=== PATIENT | female | born 1960 | race Caucasian/White ===

== ENCOUNTER 2017-11-17 09:43 | Day surgery (SDC) | payer OTHER ==
[2017-11-15 10:56] LABS: HEMOGLOBIN 14.1 g/dL (12.0-15.5); MEAN CORPUSCULAR HEMOGLOBIN 31.1 pg (27.0-33.4); MEAN CORPUSCULAR HGB CONC 34.3 g/dL (32.0-36.0); MEAN CORPUSCULAR VOLUME 91 fl (80-97); PLATELET COUNT 282 10^3/uL (150-450); RED BLOOD COUNT 4.52 10^6/uL (3.72-5.28); RED CELL DISTRIBUTION WIDTH 14.3 % (11.5-14.0); WHITE BLOOD COUNT 4.1 10^3/uL (4.0-10.5)
[2017-11-15 11:21] LABS: ANION GAP 11 (5-19); BLOOD UREA NITROGEN 19 mg/dL (7-20); CALCIUM 9.7 mg/dL (8.4-10.2); CARBON DIOXIDE 31 mmol/L (22-30); CHLORIDE 102 mmol/L (98-107); GLUCOSE 143 mg/dL (75-110); POTASSIUM 4.7 mmol/L (3.6-5.0); SODIUM 143.6 mmol/L (137-145)
[2017-11-15 11:25] LABS: APPEARANCE,URINE SLIGHTLY-CLOUDY; BILIRUBIN,URINE NEGATIVE (NEGATIVE); COLOR,URINE YELLOW; GLUCOSE, URINE NEGATIVE (NEGATIVE); KETONES,URINE NEGATIVE (NEGATIVE); LEUKOCYTE ESTERASE,URINE TRACE (NEGATIVE); NITRITE,URINE NEGATIVE (NEGATIVE); PROTEIN,URINE NEGATIVE (NEGATIVE); URINE SPECIFIC GRAVITY 1.019; UROBILINOGEN,URINE NEGATIVE mg/dL (<2.0)
--- NOTE | 2017-11-15 22:12 | EKG REPORT ---
SEVERITY:- NORMAL ECG - SINUS RHYTHM : Confirmed by: Collins Medina 15-Nov-2017 22:11:58
[~2017-11-17 09:43] MED LIST: CEFAZOLIN 1 GM/D5W RTU 1 GM/50 ML RTUPB IV PRN; LACTATED RINGERS 1000 ML IV PRN; LIDOCAINE 0.5% INJ-PF (5 MG/ML) 50 ML SDV SUBCUT PRN
[2017-11-17] MEDS ORDERED: MIDAZOLAM 2 MG/2 ML INJ ONE (11:58)
[2017-11-17] MEDS ORDERED: ACETAMINOPHEN 1,000 MG/100 ML RTUPB IV ONE (11:59)
[2017-11-17] MEDS ORDERED: HYDROMORPHONE HCL INJ/PF 2 MG/ML AMPULE ONE (11:59)
[2017-11-17] MEDS ORDERED: PROPOFOL INJ 200 MG/20 ML VIAL IV ONE (11:59)
[2017-11-17] MEDS ORDERED: OXYCODONE-ACETAMINOPHEN 5-325 MG TABLET PO PRN ×2 (12:28)
[2017-11-17] MEDS ORDERED: PROMETHAZINE HCL INJ 25 MG/1 ML VIAL IV PRN ×2 (12:28)
[2017-11-17] MEDS ORDERED: FENTANYL CITRATE INJ/PF 100 MCG/2 ML AMPUL IV PRN ×3 (12:28)
[2017-11-17] MEDS ORDERED: MEPERIDINE HCL/PF INJ 25 MG/1 ML DISP.SYRIN IV PRN (12:28)
[2017-11-17] MEDS ORDERED: DIPHENHYDRAMINE HCL 50 MG/ML VIAL IV PRN (12:28)
--- NOTE | 2017-11-17 13:00 | OPERATIVE REPORT E ---
Operative Report NAME: TUTU BANEGAS : 1960 AGE: 57Y DATE OF SURGERY: 11/17/2017 ROOM: PREOPERATIVE DIAGNOSIS: Postmenopausal bleeding. POSTOPERATIVE DIAGNOSIS: Postmenopausal bleeding, atrophy. OPERATION: D and C hysteroscopy SURGEON: Jayjay MEJÍA M.D. ESTIMATED BLOOD LOSS: Negligible. TISSUE REMOVED: Endometrium. PROCEDURE: Patient was placed in a dorsal lithotomy position, prepped and draped in sterile fashion. Speculum was placed. Cervix visualized and grasped with a single-toothed tenaculum and sounded to a depth of 10 cm. The os was dilated sufficiently. With the hysteroscope, hysteroscopy was performed with no polyps or submucous fibroids being noted. There appeared to be atrophic endometrium. Sharp curettage was performed with a minimal amount of tissue being recovered. Single-tooth tenaculum was removed and the procedure terminated. She was taken to recovery in good condition. DICTATING PHYSICIAN: Jayjay MEJÍA M.D. [id number] PHY#: [id number] ID: [id number] JOB#: [id number] ACCT: [id number] cc:Jayjay MEJÍA M.D. >
[2017-11-17] MEDS ORDERED: ONDANSETRON HCL 8 MG TABLET PO PRN (13:38)
[2017-11-17] MEDS ORDERED: IBUPROFEN 800 MG TABLET PO SCH (14:00)
[2017-11-17 14:40] VITALS: BP 123/71
== END 2017-11-17 14:05 | disposition home or self-care (01) ==
LOC: OROUT 09:43
PROVIDERS: ATTEND Obstetrics & Gynecology Gynecology
DX: N87.0 Mild cervical dysplasia (principal); N95.0 Postmenopausal bleeding; Z01.818 Encounter for other preprocedural examination; K21.9 Gastro-esophageal reflux disease without esophagitis; Z87.891 Personal history of nicotine dependence; Z88.2 Allergy status to sulfonamides; Z79.899 Other long term (current) drug therapy
CPT/HCPCS: 93010; 93005; 36415 ×2; 84132; 84703; 85027; 80048; 81001; 88342 ×2; 88341 ×2; 88305 ×2; 58558; J2250; J0690; J1170; J2704; J0131; 952

== ENCOUNTER 2018-08-10 05:47 | Emergency (ER) | payer OTHER ==
[2018-08-10 07:18] LABS: HEMATOCRIT 36.4 % (36.0-47.0); HEMOGLOBIN 12.7 g/dL (12.0-15.5); MEAN CORPUSCULAR HEMOGLOBIN 30.2 pg (27.0-33.4); MEAN CORPUSCULAR HGB CONC 34.9 g/dL (32.0-36.0); MEAN CORPUSCULAR VOLUME 86 fl (80-97); PLATELET COUNT 253 10^3/uL (150-450); RED BLOOD COUNT 4.21 10^6/uL (3.72-5.28); RED CELL DISTRIBUTION WIDTH 13.1 % (11.5-14.0); WHITE BLOOD COUNT 4.7 10^3/uL (4.0-10.5)
[2018-08-10 07:32] LABS: ALANINE AMINOTRANSFERASE 22 U/L (9-52); ALBUMIN 3.4 g/dL (3.5-5.0); ALKALINE PHOSPHATASE 67 U/L (38-126); ANION GAP 5 (5-19); ASPARTATE AMINO TRANSFERASE 20 U/L (14-36); BILIRUBIN,DIRECT 0.2 mg/dL (0.0-0.4); BILIRUBIN,TOTAL 0.7 mg/dL (0.2-1.3); BLOOD UREA NITROGEN 10 mg/dL (7-20); CALCIUM 9.2 mg/dL (8.4-10.2); CARBON DIOXIDE 26 mmol/L (22-30); CHLORIDE 108 mmol/L (98-107); GLUCOSE 83 mg/dL (75-110); POTASSIUM 3.8 mmol/L (3.6-5.0); SODIUM 138.8 mmol/L (137-145); TOTAL PROTEIN 5.8 g/dL (6.3-8.2)
[2018-08-10 07:45] LABS: ABSOLUTE MONOCYTES # (MANUAL) 0.7 10^3/uL (0.1-1.4); ABSOLUTE NEUTROPHILS# (MANUAL) 2.9 10^3/uL (1.7-8.2); BAND NEUTROPHILS % (MANUAL) 5 % (3-5); BASOPHILS % (MANUAL) 1 % (0-2); EOSINOPHILS % (MANUAL) 0 % (0-6); LYMPHOCYTES % (MANUAL) 21 % (13-45); MONOCYTES % (MANUAL) 15 % (3-13); SEGMENTED NEUTROPHILS % (MAN) 57 % (42-78); TOTAL CELLS COUNTED 100
[2018-08-10 07:47] LABS: OVALOCYTES SLIGHT; PLATELET COMMENT ADEQUATE; POIKILOCYTOSIS SLIGHT
--- NOTE | 2018-08-10 08:22 | ER Document Report ---
ED General - General Chief Complaint: Fever Stated Complaint: FEVER Time Seen by Provider: 08/10/18 08:21 Primary Care Provider: DEMETRIUS SAMAYOA PA [Primary Care Provider] - Follow up as needed Notes: 58-year-old female to the emergency department chief complaint of headache, neck pain fever at home. Patient states that she had a fever 103 at home. This is been going on for several days. She is concerned she may have meningitis. Denies any abdominal pain. Nothing seems to make it better or worse. No discomfort with urination. No significant exposures to sick contacts. No recent travel outside states. TRAVEL OUTSIDE OF THE [place] IN LAST 30 DAYS: No - HPI Onset: Yesterday Onset/Duration: Gradual, Constant Quality of pain: Achy Severity: Moderate Pain Level: 3 Associated symptoms: Fever, Headache - Related Data Allergies/Adverse Reactions: Sulfa (Sulfonamide Antibiotics) Allergy (Severe, Verified 08/10/18 05:49) Hives Past Medical History - General Information source: Patient - Social History Smoking Status: Never Smoker Chew tobacco use (# tins/day): No Frequency of alcohol use: None Drug Abuse: None Lives with: Alone Family History: Reviewed & Not Pertinent Patient has suicidal ideation: No Patient has homicidal ideation: No - Medical History Medical History: Negative Renal/ Medical History: Denies: Hx Peritoneal Dialysis Review of Systems - Review of Systems Notes: Constitutional: denies: Chills, Diaphoresis, +Fever EENT: denies: Eye discharge, Blurred vision, Tearing, Double vision, Nose congestion, Nose discharge, Throat swelling, Mouth pain. Complaining of stiffness in the neck and low back pain. Cardiovascular: denies: Palpitations, Heart racing, Orthopnea, Dyspnea, Chest pain Respiratory: denies: Cough, Hurts to breathe, Wheezing, Shortness of breath Gastrointestinal: denies: Abdominal pain, Diarrhea, Nausea, Vomiting, Black stools, bright red blood in stool Genitourinary: denies: Burning, Dysuria, Discharge, Frequency, Flank pain, Hematuria Musculoskeletal: denies: Joint pain, Joint swelling, Muscle pain, Muscle sti ffness, back pain Hematologic/Lymphatic: denies: Anemia, Easy bleeding, Easy bruising, Blood clots Neurological/Psychological: denies: Confusion, Dementia, Depression, Loss of consciousness and complaining of a headache Skin: No lesions, no masses, no skin breakdown, no abscesses Physical Exam - Vital signs Vitals: Temp Pulse Resp BP Pulse Ox 99.8 F 84 18 119/72 96 08/10/18 05:55 08/10/18 05:55 08/10/18 05:55 08/10/18 05:55 08/10/18 05:55 Interpretation: Normal - General General appearance: Appears well, Alert - HEENT Head: Normocephalic, Atraumatic Eyes: Normal Pupils: PERRL Pharynx: Normal Neck: Normal. No: Brudzinski, Lymphadenopathy, Meningismus - Respiratory Respiratory status: No respiratory distress Chest status: Nontender Breath sounds: Normal Chest palpation: Normal - Cardiovascular Rhythm: Regular Heart sounds: Normal auscultation Murmur: No - Abdominal Inspection: Normal Distension: No distension Bowel sounds: Normal Tenderness: Nontender Organomegaly: No organomegaly - Back Back: Normal, Nontender - Extremities General upper extremity: Normal inspection, Nontender, Normal color, Normal ROM, Normal temperature General lower extremity: Normal inspection, Nontender, Normal color, Normal ROM, Normal temperature, Normal weight bearing. No: Liza's sign - Neurological Neuro grossly intact: Yes Cognition: Normal Orientation: AAOx4 Neel Coma Scale Eye Opening: Spontaneous [place] Coma Scale Verbal: Oriented Neel Coma Scale Motor: Obeys Commands Neel Coma Scale Total: 15 Speech: Normal Motor strength normal: LUE, RUE, LLE, RLE Sensory: Normal - Psychological Associated symptoms: Normal affect, Normal mood - Skin Skin Temperature: Warm Skin Moisture: Dry Skin Color: Normal Course - Re-evaluation Re-evalutation: 08/10/18 11:46 Patient's labs are unremarkable. Afebrile here. CT shows some maxillary sinus cysts. Patient is still concerned that she could potentially have meningitis as she has been having fevers of 103 at home. States that she was tested by her primary care doctor for mono as well as strep and influenza and these were all negative. She would like to proceed with an LP to rule out meningitis. At this time I am going to see if radiology can perform this procedure. Coags are still pending at this time. 08/10/18 13:55 Radiology is available now to do the LP. LP results are pending after the procedure. Patient has been signed over to Dr. Reyes for review of the CSF analysis. If CSF does not show any significant findings for meningitis or subarachnoid hemorrhage then patient can be discharged with viral syndrome and headache. Laboratory 08/10/18 08/10/18 08/10/18 07:00 07:00 07:15 WBC 4.7 RBC 4.21 Hgb 12.7 Hct 36.4 MCV 86 MCH 30.2 MCHC 34.9 RDW 13.1 Plt Count 253 Total Counted 100 Seg Neutrophils % Not Reportable Seg Neuts % (Manual) 57 Band Neutrophils % 5 Lymphocytes % Not Reportable Lymphocytes % (Manual) 21 Atypical Lymphs % 1 Monocytes % Not Reportable Monocytes % (Manual) 15 H Eosinophils % Not Reportable Eosinophils % (Manual) 0 Basophils % Not Reportable Basophils % (Manual) 1 Absolute Neutrophils Not Reportable Abs Neuts (Manual) 2.9 Absolute Lymphocytes Not Reportable Abs Lymphs (Manual) 1.0 Absolute Monocytes Not Reportable Abs Monocytes (Manual) 0.7 Absolute Eosinophils Not Reportable Absolute Eos (Manual) 0.0 Absolute Basophils Not Reportable Abs Basophils (Manual) 0.0 Platelet Comment ADEQUATE Poikilocytosis SLIGHT Ovalocytes SLIGHT PT INR APTT Sodium 138.8 Potassium 3.8 Chloride 108 H Carbon Dioxide 26 Anion Gap 5 BUN 10 Creatinine 0.72 Est GFR ( Amer) > 60 Est GFR (Non-Af Amer) > 60 Glucose 83 Calcium 9.2 Total Bilirubin 0.7 Direct Bilirubin 0.2 Neonat Total Bilirubin Not Reportable Neonat Direct Bilirubin Not Reportable Neonat Indirect Bili Not Reportable AST 20 ALT 22 Alkaline Phosphatase 67 Total Protein 5.8 L Albumin 3.4 L Urine Color YELLOW Urine Appearance CLEAR Urine pH 5.0 Ur Specific [place] 1.016 Urine Protein NEGATIVE Urine Glucose (UA) NEGATIVE Urine Ketones NEGATIVE Urine Blood SMALL H Urine Nitrite NEGATIVE Urine Bilirubin NEGATIVE Urine Urobilinogen NEGATIVE Ur Leukocyte Esterase NEGATIVE Urine WBC (Auto) 1 Urine RBC (Auto) 0 Squamous Epi Cells Auto 1 Urine Mucus (Auto) RARE Urine Ascorbic Acid NEGATIVE 08/10/18 12:09 WBC RBC Hgb Hct MCV MCH MCHC RDW Plt Count Total Counted Seg Neutrophils % Seg Neuts % (Manual) Band Neutrophils % Lymphocytes % Lymphocytes % (Manual) Atypical Lymphs % Monocytes % Monocytes % (Manual) Eosinophils % Eosinophils % (Manual) Basophils % Basophils % (Manual) Absolute Neutrophils Abs Neuts (Manual) Absolute Lymphocytes Abs Lymphs (Manual) Absolute Monocytes Abs Monocytes (Manual) Absolute Eosinophils Absolute Eos (Manual) Absolute Basophils Abs Basophils (Manual) Platelet Comment Poikilocytosis Ovalocytes PT 13.4 INR 0.97 APTT 29.9 Sodium Potassium Chloride Carbon Dioxide Anion Gap BUN Creatinine Est GFR ( Amer) Est GFR (Non-Af Amer) Glucose Calcium Total Bilirubin Direct Bilirubin Neonat Total Bilirubin Neonat Direct Bilirubin Neonat Indirect Bili AST ALT Alkaline Phosphatase Total Protein Albumin Urine Color Urine Appearance Urine pH Ur Specific [place] Urine Protein Urine Glucose (UA) Urine Ketones Urine Blood Urine Nitrite Urine Bilirubin Urine Urobilinogen Ur Leukocyte Esterase Urine WBC (Auto) Urine RBC (Auto) Squamous Epi Cells Auto Urine Mucus (Auto) Urine Ascorbic Acid Head CT 08/10/18 08:55 IMPRESSION: No intracranial pathology. Retention cyst each maxillary sinus. EVIDENCE OF ACUTE STROKE: NO. - Vital Signs Vital signs: Temp Pulse Resp BP Pulse Ox 98.0 F 66 16 109/53 L 100 08/10/18 10:52 08/10/18 10:52 08/10/18 10:52 08/10/18 10:52 08/10/18 07:02 - Laboratory Result Diagrams: 08/10/18 07:00 08/10/18 07:00 Laboratory results interpreted by me: 08/10/18 08/10/18 08/10/18 07:00 07:00 07:15 Monocytes % (Manual) 15 H Chloride 108 H Total Protein 5.8 L Albumin 3.4 L Urine Blood SMALL H Discharge - Discharge Clinical Impression: Viral syndrome Headache Qualifiers: Headache type: unspecified Headache chronicity pattern: acute headache Intractability: not intractable Qualified Code(s): R51 - Headache Condition: Good Disposition: HOME, SELF-CARE Referrals: DEMETRIUS SAMAYOA PA [Primary Care Provider] - Follow up as needed
[2018-08-10 08:43] LABS: APPEARANCE,URINE CLEAR; BILIRUBIN,URINE NEGATIVE (NEGATIVE); COLOR,URINE YELLOW; GLUCOSE, URINE NEGATIVE (NEGATIVE); KETONES,URINE NEGATIVE (NEGATIVE); LEUKOCYTE ESTERASE,URINE NEGATIVE (NEGATIVE); NITRITE,URINE NEGATIVE (NEGATIVE); PROTEIN,URINE NEGATIVE (NEGATIVE); URINE SPECIFIC GRAVITY 1.016; UROBILINOGEN,URINE NEGATIVE mg/dL (<2.0)
[2018-08-10] MEDS ORDERED: HYDROCODONE/ACETAMINOPHEN 5-325 MG TABLET PO ONE (08:55)
--- NOTE | 2018-08-10 09:30 | RADIOLOGY REPORT (SQ) ---
EXAM DESCRIPTION: CT HEAD WITHOUT COMPLETED DATE/TIME: 08/10/2018 9:17 am REASON FOR STUDY: headache and fever COMPARISON: None. TECHNIQUE: Axial images acquired through the brain without intravenous contrast. Images reviewed wi th bone, brain and subdural windows. Additional sagittal and coronal reconstructions were generated. Images stored on PACS. All CT scanners at this facility use dose modulation, iterative reconstruction, and/or weight based d osing when appropriate to reduce radiation dose to as low as reasonably achievable (ALARA). [facility]: Dose Right [facility]: CareDose [facility]: Dose Right [facility]: Teradose 4D [facility]: Jukedeck RADIATION DOSE: CT Rad equipment meets quality standard of care and radiation dose reduction techniq ues were employed. CTDIvol: 53.2 mGy. DLP: 991 mGy-cm. mGy. LIMITATIONS: None. FINDINGS: VENTRICLES: Normal size and contour. CEREBRUM: No masses. No hemorrhage. No midline shift. No evidence for acute infarction. Normal gra y/white matter differentiation. No areas of low density in the white matter. CEREBELLUM: No masses. No hemorrhage. No alteration of density. No evidence for acute infarction. EXTRAAXIAL SPACES: No fluid collections. No masses. ORBITS AND GLOBE: No intra- or extraconal masses. Normal contour of globe without masses. CALVARIUM: No fracture. PARANASAL SINUSES: Retention cyst each maxillary sinus SOFT TISSUES: No mass or hematoma. OTHER: No other significant finding. IMPRESSION: No intracranial pathology. Retention cyst each maxillary sinus. EVIDENCE OF ACUTE STROKE: NO. COMMENT: Quality ID # [id number]: Final reports with documentation of one or more dose reduction techniques (e.g., Automated exposure control, adjustment of the mA and/or kV according to patient size, use of iterative reconstruction technique) TECHNICAL DOCUMENTATION: JOB ID: [id number] [employer]- All Rights Reserved Reading location - IP/workstation name: [email or web address]
[2018-08-10 12:26] LABS: INTERNATIONAL RATION (INR) 0.97; PROTHROMBIN TIME 13.4 SEC (11.4-15.4)
[2018-08-10 12:27] LABS: PARTIAL THROMBOPLASTIN TIME 29.9 SEC (23.5-35.8)
[2018-08-10 15:07] LABS: GLUCOSE,CSF 46 mg/dL (40-70); PROTEIN,CSF 34 mg/dL (12-60)
[2018-08-10 15:20] LABS: APPEARANCE ALL TUBES CLEAR; COLOR ALL TUBES COLORLESS; CSF TOTAL VOLUME 8.5 CC; CSF TUBE NUMBER 1; VOLUME TUBE 4 2.5 CC
--- NOTE | 2018-08-10 15:20 | RADIOLOGY REPORT (SQ) ---
EXAM DESCRIPTION: LUMBAR PUNCTURE; FLUORO/NEEDLE PLACEMENT/SPINE COMPLETED DATE/TIME: 08/10/2018 3:00 pm; 08/10/2018 3:01 pm REASON FOR STUDY: MENINGITIS; AMS COMPARISON: None. FLUOROSCOPY TIME: 10 seconds 1 images saved to PACS. TECHNIQUE: Fluoroscopic guided lumbar puncture. LIMITATIONS: None. PROCEDURE: After written consent and assessment were obtained, the patient was brought into the fluo roscopy room and placed prone on the table. The patient's lower back was prepped in a sterile fashio n and an entry site was selected under live fluoroscopic guidance. The entry site was anesthetized wi th 1% lidocaine. A 22 gauge needle was advanced through the skin and into the thecal sac at the level of L3-L4. After approximately 8 ml was drained, the needle was removed and a sterile bandage was esteban sandhya of the site. Specimens were sent to the lab for testing. A fluoroscopic spot image was saved to PACS confirming level access. FINDINGS: Clear CSF IMPRESSION: Lumbar puncture under fluoroscopy. No immediate complication. COMMENT: Patient medication list reviewed: Yes- Quality ID# [id number]:Eligible professional attests to doc umenting in the medical record they obtained, updated, or reviewed the patient's current medications. . Quality ID 145: Final reports for procedures using fluoroscopy that document radiation exposure brooke isi, or exposure time and number of fluorographic images (if radiation exposure indices are not avail able) TECHNICAL DOCUMENTATION: JOB ID: [id number] [employer]- All Rights Reserved Reading location - IP/workstation name: [email or web address]
[2018-08-10 15:21] LABS: RED BLOOD CELL,CSF 115 /uL (0-10); WHITE BLOOD CELL,CSF 0 /uL (0-5)
[2018-08-10 15:22] LABS: APPEARANCE ALL TUBES CLEAR; COLOR ALL TUBES COLORLESS; CSF TOTAL VOLUME 8.5 CC; CSF TUBE NUMBER 4; RED BLOOD CELL,CSF 5 /uL (0-10); VOLUME TUBE 4 2.5 CC; WHITE BLOOD CELL,CSF 0 /uL (0-5)
[2018-08-10] MEDS ORDERED: DOXYCYCLINE HYCLATE 100 MG TABLET PO ONE (15:45)
[2018-08-10 16:15] VITALS: BP 125/54
[2018-08-10] MEDS ORDERED: OXYCODONE HCL IR 5 MG TABLET PO ONE (16:19)
[2018-08-14 17:12] LABS: LYME DISEASE IGM AB <0.80 index (0.00-0.79)
[2018-08-15 02:36] LABS: Q FEVER PHASE I AB Negative (Neg:<1:16); ROCKY MTN SPOTTED FEV IGG EIA Negative (Negative)
[2018-08-15 07:21] LABS: Q FEVER PHASE II AB Negative (Neg:<1:16)
[2018-08-15 10:29] LABS: A. PHAGOCYTOPHILUM PCR Negative (Negative); E. CHAFFEENSIS PCR Negative (Negative)
== END 2018-08-10 16:27 | disposition home or self-care (01) ==
LOC: ER 05:47
DX: B34.9 Viral infection, unspecified (principal); R51 Headache; R50.9 Fever, unspecified; M54.2 Cervicalgia
CPT/HCPCS: 36415; 62270; 70450; 77003; 80053; 81001; 82945; 84157; 85025; 85610; 85730; 86308; 86617; 86618; 86757; 87040; 87070; 87205; 87798; 89050; 99284

== ENCOUNTER → 2019-12-15 | Outpatient (CLI) | payer OTHER | LOC: OD 09:54 | PROVIDERS: ATTEND Internal Medicine Endocrinology, Diabetes & Metabolism | DX: E16.2 Hypoglycemia, unspecified (principal) | CPT/HCPCS: 36415; 82010; 82024; 82533; 82947; 83525; 84206; 84305; 84681 ==